=== PATIENT | male | born 1965 | race Two or more races ===

== ENCOUNTER 2019-03-13 13:30 | Emergency (ER) | payer SELFPAY ==
[~2019-03-13] VITALS: Ht 182.9 cm; Wt 76.1 kg
[2019-03-13] MEDS ORDERED: TETANUS, DIPHTHERIA, PERTUSSIS VAC/PF 0.5ML (>7YR OLD) IM ONE (14:00)
[2019-03-13 14:41] VITALS: BP 110/65
== END 2019-03-13 15:03 | disposition home or self-care (01) ==
LOC: ER 13:30
DX: S09.8XXA Other specified injuries of head, initial encounter (principal); W22.8XXA Striking against or struck by other objects, initial encounter; Y93.89 Activity, other specified; Y92.89 Other specified places as the place of occurrence of the external cause; Y99.8 Other external cause status
CPT/HCPCS: 12001; 90471; 90715; 99283

== ENCOUNTER 2019-03-15 11:13 | Emergency (ER) | payer SELFPAY ==
[~2019-03-15] VITALS: Ht 172.7 cm; Wt 76.0 kg
[2019-03-15 11:50] VITALS: BP 110/73
== END 2019-03-15 14:38 | disposition left against medical advice (07) ==
LOC: ER 11:13
DX: Z48.01 Encounter for change or removal of surgical wound dressing (principal); Z53.21 Procedure and treatment not carried out due to patient leaving prior to being seen by health care provider